=== PATIENT | female | born 1955 | race Two or more races ===

== ENCOUNTER 2024-09-17 09:38 | Outpatient (AMB) | payer OTHER, SELFPAY ==
--- NOTE | 2024-08-21 15:27 | PD.ORTHCLVIS ---
Med/Allergies Allergies & Medications Allergies Penicillins Allergy (Intermediate, Verified 08/20/24 09:12) Rash Subjective Immunization / Flu Flu Vaccine in the Last 12 Months: Yes Flu Vaccine Exclusion Criteria: Already Received Review of Systems Review of Systems: All systems negative unless otherwise noted in HPI. Assessment and Plan Problem List (1) Mechanical loosening of internal right knee prosthetic joint: Status: Acute Plan Please see attached letter Assessment Assessment: letter attached Plan Plan: letter attached Advanced Care Planning Discussion Advance care planning discussed with:: other Past Medical History Past Medical History Have you ever been diagnosed with any of the following: Neurological Problems Seizures: No Cardiology Problems Hypercholesterolemia: Yes Congestive Heart Failure: No Respiratory Problems Chronic Obstructive Pulmonary Disease (COPD): No Bronchitis: Yes Sleep Apnea: Yes (does not have CPAP) Smoking: No Smoking Exposure: No Stomache/Intestinal Problems Hepatitis: No Gastroesophageal Reflux Disease: Yes Genital/Urinary Problems Renal Disease: No Reproductive Problems Previous Pregnancies: Yes Musculoskeletal Problems Arthritis: Yes Head,Eye,Nose,Throat Problems Cataracts: Yes (bilateral) Endocrine Problems Diabetes Mellitus Type 1: No Diabetes Mellitus Type 2: No Blood Problems Anemia: Yes Other Problems Hospitalization: No Shingles: No Falls: No Blood Transfusions: No Blood Transfusion Reaction: No Anesthesia Reactions: Yes (Right knee) Organ Transplant: No Chicken Pox: Yes Measles: Yes Cancer: No
[2024-09-17 10:09] VITALS: BP 168/77; PULSE 93; RESP 19; TEMP 36.4; O2SAT 98; BMI 28.9; BMI 63.1
--- NOTE | 2024-09-17 10:09 | PD.ORTHCLVIS ---
Vital signs 09/17/24 10:09 09/17/24 10:09 Height 1.5 m 1.5 m Height Method Stated Stated Weight 142 kg 65.062 kg Weight Measurement Method Standing Scale Standing Scale BMI 63.1 28.9 BP 168/77 H Blood Pressure Source Automatic Cuff Blood Pressure Location Right Upper Arm Position Sitting Respiration 19 Pulse 93 Pulse Source Monitor Temp 97.5 F Temp Source Temporal Artery Scan Pulse Oximetry (%) 98 Oxygen Delivery Method Room Air Med/Allergies Allergies & Medications Allergies Penicillins Allergy (Intermediate, Verified 09/17/24 10:10) Rash Medication Reconciliation atorvastatin 40 mg tablet 20 mg PO DAILY 11/07/18 [History Confirmed 09/17/24] omeprazole 40 mg capsule,delayed release 40 mg PO QDAY 11/07/18 [History Confirmed 09/17/24] meclizine 25 mg tablet 25 mg PO BID 05/09/23 [History Confirmed 09/17/24] ascorbic acid (vitamin C) 250 mg tablet (Vitamin C) 250 mg PO BID 08/05/24 [History Confirmed 09/17/24] calcium carbonate 600 mg-vitamin D3 5 mcg (200 unit) tablet 1 tab PO QDAY 08/05/24 [History Confirmed 09/17/24] ginkgo biloba leaf extract 120 mg capsule 120 mg PO QDAY 08/05/24 [History Confirmed 09/17/24] aspirin 81 mg tablet,delayed release 81 mg PO BID #60 tabs 08/07/24 [Rx Confirmed 09/17/24] doxycycline hyclate 100 mg tablet 100 mg PO BID #14 tabs 08/07/24 [Rx Confirmed 09/17/24] gabapentin 300 mg capsule 300 mg PO .qhs #30 caps 08/07/24 [Rx Confirmed 09/17/24] oxycodone 5 mg tablet 5 mg PO Q6H PRN pain #28 tabs 08/07/24 [Rx Confirmed 09/17/24] sennosides 8.6 mg-docusate sodium 50 mg tablet (Senna-S) 1 tab-cap PO QDAY #30 tabs 08/07/24 [Rx Confirmed 09/17/24] acetaminophen 500 mg tablet (Acetaminophen Extra Strength) 1,000 mg (2 x 500 mg) PO Q6H PRN pain #90 tabs 09/11/24 [Rx Confirmed 09/17/24] Subjective Visit Visit for: follow up visit and post op #1 Immunization / Flu Flu Vaccine in the Last 12 Months: No Flu Vaccine Exclusion Criteria: No Exclusion Criteria History of Present Illness Chief complaint: POST OP Patient is doing well status post total knee replacement. She is 6 weeks out from revision total knee replacement. She is doing well Personal History Occupation: DISABLED Pain Pain level (0-10): 6 Pain duration: COMES AND GOES Pain location: anterior and posterior Pain quality: sharp, dull and aching Pain timing: increases with activity Associated signs & symptoms: numbness and stiffness Ambulatory data Ambulatory device: cane Treatments Improvement with previous injections: No Improvement with PT: No Improvement with NSAIDS: n/a Review of Systems Review of Systems: All systems negative unless otherwise noted in HPI. Exam Exam Patient is in no acute distress and is cooperative with the examination today. Patient has a normal mood and affect. Breathing is nonlabored. In no respiratory distress. Bilateral extremities were evaluated and demonstrates sensation intact to light touch. Palpable pedal pulses are present. No significant edema is present. Right knee incisions clean dry intact. Range of motion is 5 to 95 degrees X-rays demonstrate a revision total knee replacement in good alignment position Assessment and Plan Problem List (1) Mechanical loosening of internal right knee prosthetic joint: Status: Acute Plan: Patient is doing well status post revision total knee replacement for loosening. She should continue to work with outpatient physical therapy. Will see her in approximately 6 weeks and check on her motion. Advanced Care Planning Discussion Advance care planning discussed with:: patient Office Procedures GNS Level of Care Nursing/Assessment Patient Status: Established Patient Nursing Assessment/Reassesment: Medication Reconciliation, Update PMH in EMR and Vital Signs Coordination of Care: Complex Care and Chronic Disease 1-5, Education Complex Pt/Fam, Consent,records obtained, informed consent, Results/Orders obtained and Staff clarify orders Special Needs: Language special needs Established Patient Charge Established Patient Point Assignment: 95 Established Patient Point Charge: EP Level 3 (80-115) Past Medical History Past Medical History Have you ever been diagnosed with any of the following: Neurological Problems Seizures: No Cardiology Problems Hypercholesterolemia: Yes Congestive Heart Failure: No Respiratory Problems Chronic Obstructive Pulmonary Disease (COPD): No Bronchitis: Yes Sleep Apnea: Yes (does not have CPAP) Smoking: No Smoking Exposure: No Stomache/Intestinal Problems Hepatitis: No Gastroesophageal Reflux Disease: Yes Genital/Urinary Problems Renal Disease: No Reproductive Problems Previous Pregnancies: Yes Musculoskeletal Problems Arthritis: Yes Head,Eye,Nose,Throat Problems Cataracts: Yes (bilateral) Endocrine Problems Diabetes Mellitus Type 1: No Diabetes Mellitus Type 2: No Blood Problems Anemia: Yes Other Problems Hospitalization: No Shingles: No Falls: No Blood Transfusions: No Blood Transfusion Reaction: No Anesthesia Reactions: Yes (Right knee) Organ Transplant: No Chicken Pox: Yes Measles: Yes Cancer: No Surgical History Total Knee Replacement: Yes
== END 2024-09-17 10:36 | disposition home or self-care (01) ==
LOC: HODSRG 09:38
PROVIDERS: PCP Internal Medicine; Referring Provider Internal Medicine; Supervising Provider Orthopaedic Surgery Adult Reconstructive Orthopaedic Surgery; Visit Provider Orthopaedic Surgery Adult Reconstructive Orthopaedic Surgery
DX: T84.032D Mechanical loosening of internal right knee prosthetic joint, subsequent encounter (principal); Z96.659 Presence of unspecified artificial knee joint; E78.00 Pure hypercholesterolemia, unspecified; G47.30 Sleep apnea, unspecified
CPT/HCPCS: 99213; G0463

== ENCOUNTER 2024-10-29 10:21 | Outpatient (AMB) | payer OTHER, SELFPAY ==
[2024-10-29 11:13] VITALS: BP 128/79; PULSE 71; RESP 18; TEMP 36.3; O2SAT 94; BMI 28.6
--- NOTE | 2024-10-29 11:13 | PD.ORTHCLVIS ---
Vital signs 10/29/24 11:13 Height 1.5 m Height Method Stated Weight 64.438 kg Weight Measurement Method Standing Scale BMI 28.6 BP 128/79 Blood Pressure Source Automatic Cuff Blood Pressure Location Left Upper Arm Position Sitting Respiration 18 Pulse 71 Pulse Source Monitor Temp 97.3 F Temp Source Temporal Artery Scan Pulse Oximetry (%) 94 L Oxygen Delivery Method Room Air Med/Allergies Allergies & Medications Allergies Penicillins Allergy (Intermediate, Verified 09/17/24 10:10) Rash Subjective Visit Visit for: follow up visit, post op #1 and knee Immunization / Flu Flu Vaccine in the Last 12 Months: No Flu Vaccine Exclusion Criteria: No Exclusion Criteria History of Present Illness Chief complaint: POST OP Patient is doing well status post total knee replacement. She is 12 weeks out from revision total knee replacement. She is doing well Personal History Occupation: DISABLED Pain Pain level (0-10): 4 Pain duration: ON AND OFF Pain location: inside (medial), anterior and posterior Pain quality: sharp, dull and aching Pain timing: increases with activity Associated signs & symptoms: numbness and stiffness Ambulatory data Ambulatory device: cane and none Treatments Improvement with previous injections: No Improvement with PT: No Improvement with NSAIDS: no Review of Systems Review of Systems: All systems negative unless otherwise noted in HPI. Exam Exam Patient is in no acute distress and is cooperative with the examination today. Patient has a normal mood and affect. Breathing is nonlabored. In no respiratory distress. Bilateral extremities were evaluated and demonstrates sensation intact to light touch. Palpable pedal pulses are present. No significant edema is present. Right knee incisions clean dry intact. Range of motion is 5 to 95 degrees X-rays demonstrate a revision total knee replacement in good alignment position Assessment and Plan Problem List (1) Mechanical loosening of internal right knee prosthetic joint: Status: Acute Plan: Patient is doing well status post revision total knee replacement for loosening. She should continue to work with outpatient physical therapy. Will see her in approximately 3 months for routine followup. She is happy with her pain relief. Advanced Care Planning Discussion Advance care planning discussed with:: patient Office Procedures GNS Level of Care Nursing/Assessment Patient Status: Established Patient Nursing Assessment/Reassesment: Medication Reconciliation, Update PMH in EMR and Vital Signs Coordination of Care: Complex Care and Chronic Disease 1-5, Education Complex Pt/Fam, Consent,records obtained, informed consent, Lab and Imaging orders, Results/Orders obtained and Staff clarify orders Special Needs: Language special needs Established Patient Charge Established Patient Point Assignment: 110 Established Patient Point Charge: EP Level 3 (80-115) Past Medical History Past Medical History Have you ever been diagnosed with any of the following: Neurological Problems Seizures: No Cardiology Problems Hypercholesterolemia: Yes Congestive Heart Failure: No Respiratory Problems Chronic Obstructive Pulmonary Disease (COPD): No Bronchitis: Yes Sleep Apnea: Yes (does not have CPAP) Smoking: No Smoking Exposure: No Stomache/Intestinal Problems Hepatitis: No Gastroesophageal Reflux Disease: Yes Genital/Urinary Problems Renal Disease: No Reproductive Problems Previous Pregnancies: Yes Musculoskeletal Problems Arthritis: Yes Head,Eye,Nose,Throat Problems Cataracts: Yes (bilateral) Endocrine Problems Diabetes Mellitus Type 1: No Diabetes Mellitus Type 2: No Blood Problems Anemia: Yes Other Problems Hospitalization: No Shingles: No Falls: No Blood Transfusions: No Blood Transfusion Reaction: No Anesthesia Reactions: Yes (Right knee) Organ Transplant: No Chicken Pox: Yes Measles: Yes Cancer: No Surgical History Total Knee Replacement: Yes
== END 2024-10-29 11:19 | disposition home or self-care (01) ==
LOC: HODSRG 10:21
PROVIDERS: PCP Internal Medicine; Referring Provider Internal Medicine; Supervising Provider Orthopaedic Surgery Adult Reconstructive Orthopaedic Surgery; Visit Provider Orthopaedic Surgery Adult Reconstructive Orthopaedic Surgery
DX: T84.032D Mechanical loosening of internal right knee prosthetic joint, subsequent encounter (principal); Y84.9 Medical procedure, unspecified as the cause of abnormal reaction of the patient, or of later complication, without mention of misadventure at the time of the procedure; E78.00 Pure hypercholesterolemia, unspecified; K21.9 Gastro-esophageal reflux disease without esophagitis
CPT/HCPCS: 99213; G0463

== ENCOUNTER → 2024-12-30 | Outpatient (CLI) | payer OTHER, SELFPAY ==
--- NOTE | 2024-12-30 10:01 | XR_ITS ---
Examination: Right knee 4 views TECHNIQUE: AP oblique lateral axial right knee 4 views Exam date and time: December 30, 2024 1023 hours Comparison September 11, 2024 INDICATIONS: Postop knee surgery August 2024 with persistent knee pain FINDINGS: Moderate osteopenia Total right knee arthroplasty. Satisfactory alignment. No loosening of the prosthetic components No patellar dislocation IMPRESSION: Total right knee arthroplasty with satisfactory alignment
== END | disposition home or self-care (01) ==
PROVIDERS: PCP Internal Medicine; Referring Provider Orthopaedic Surgery Adult Reconstructive Orthopaedic Surgery; Visit Provider Orthopaedic Surgery Adult Reconstructive Orthopaedic Surgery
DX: T84.032A Mechanical loosening of internal right knee prosthetic joint, initial encounter (principal)
CPT/HCPCS: 73564

== ENCOUNTER 2025-01-28 09:54 | Outpatient (AMB) | payer OTHER, SELFPAY ==
[2025-01-28 10:36] VITALS: BP 134/73; PULSE 71; RESP 18; TEMP 36.4; O2SAT 98; BMI 27.9
--- NOTE | 2025-01-28 10:36 | PD.ORTHCLVIS ---
Vital signs 01/28/25 10:36 Height 1.5 m Height Method Stated Weight 62.823 kg Weight Measurement Method Standing Scale BMI 27.9 BP 134/73 H Blood Pressure Source Automatic Cuff Blood Pressure Location Left Upper Arm Position Sitting Respiration 18 Pulse 71 Pulse Source Monitor Temp 97.5 F Temp Source Temporal Artery Scan Pulse Oximetry (%) 98 Oxygen Delivery Method Room Air Med/Allergies Allergies & Medications Allergies Penicillins Allergy (Intermediate, Verified 01/28/25 10:37) Rash Medication Reconciliation atorvastatin 40 mg tablet 20 mg PO DAILY 11/07/18 [History Confirmed 01/28/25] omeprazole 40 mg capsule,delayed release 40 mg PO QDAY 11/07/18 [History Confirmed 01/28/25] meclizine 25 mg tablet 25 mg PO BID 05/09/23 [History Confirmed 01/28/25] ascorbic acid (vitamin C) 250 mg tablet (Vitamin C) 250 mg PO BID 08/05/24 [History Confirmed 01/28/25] calcium 600 mg (as carbonate)-vitamin D3 5 mcg (200 unit) tablet 1 tab PO QDAY 08/05/24 [History Confirmed 01/28/25] ginkgo biloba leaf extract 120 mg capsule 120 mg PO QDAY 08/05/24 [History Confirmed 01/28/25] aspirin 81 mg tablet,delayed release 81 mg PO BID #60 tabs 08/07/24 [Rx Confirmed 01/28/25] doxycycline hyclate 100 mg tablet 100 mg PO BID #14 tabs 08/07/24 [Rx Confirmed 01/28/25] gabapentin 300 mg capsule 300 mg PO .qhs #30 caps 08/07/24 [Rx Confirmed 01/28/25] oxycodone 5 mg tablet 5 mg PO Q6H PRN pain #28 tabs 08/07/24 [Rx Confirmed 01/28/25] sennosides 8.6 mg-docusate sodium 50 mg tablet (Senna-S) 1 tab-cap PO QDAY #30 tabs 08/07/24 [Rx Confirmed 01/28/25] acetaminophen 500 mg tablet (Acetaminophen Extra Strength) 1,000 mg (2 x 500 mg) PO Q6H PRN pain #90 tabs 09/11/24 [Rx Confirmed 01/28/25] Exam Exam Patient is in no acute distress and is cooperative with the examination today. Patient has a normal mood and affect. Breathing is nonlabored. In no respiratory distress. Bilateral extremities were evaluated and demonstrates sensation intact to light touch. Palpable pedal pulses are present. No significant edema is present. Right knee incisions clean dry intact. Range of motion is 5 to 95 degrees X-rays demonstrate a revision total knee replacement in good alignment position Assessment and Plan Problem List (1) Mechanical loosening of internal right knee prosthetic joint: Status: Acute Plan: Patient is doing well status post revision total knee replacement for loosening.She is ambulating well. She reports that she continues to improve. Will see her in approximately 6 months with new x-rays Advanced Care Planning Discussion Advance care planning discussed with:: patient Office Procedures GNS Level of Care Nursing/Assessment Patient Status: Established Patient Nursing Assessment/Reassesment: Medication Reconciliation, Update PMH in EMR and Vital Signs Coordination of Care: Complex Care and Chronic Disease 1-5, Education Complex Pt/Fam, Consent,records obtained, informed consent, Results/Orders obtained and Staff clarify orders Special Needs: Language special needs Established Patient Charge Established Patient Point Assignment: 95 Established Patient Point Charge: EP Level 3 (80-115) MA Intake Visit Data Collection New Patient or Established: Established Patient (seen at [facility] within 3 years) Reason for Visit:: 3 MONTH F/U Seen by Clinical Staff ONLY (RN/MA): No Tube Worker Required: Yes PCP or OBGYN visit in last 3 months: Yes Hx Now: No Do You Feel Safe at Home: Yes Authorities Contacted: N/A Questionairres Past Medical History Past Medical History Have you ever been diagnosed with any of the following: Neurological Problems Seizures: No Cardiology Problems Hypercholesterolemia: Yes Congestive Heart Failure: No Respiratory Problems Chronic Obstructive Pulmonary Disease (COPD): No Bronchitis: Yes Sleep Apnea: Yes (does not have CPAP) Smoking: No Smoking Cessation Counseling: No Smoking Exposure: No Stomache/Intestinal Problems Hepatitis: No Gastroesophageal Reflux Disease: Yes Genital/Urinary Problems Renal Disease: No Reproductive Problems Previous Pregnancies: Yes Musculoskeletal Problems Arthritis: Yes Head,Eye,Nose,Throat Problems Cataracts: Yes (bilateral) Endocrine Problems Diabetes Mellitus Type 1: No Diabetes Mellitus Type 2: No Blood Problems Anemia: Yes Other Problems Hospitalization: No Shingles: No Falls: No Blood Transfusions: No Blood Transfusion Reaction: No Anesthesia Reactions: Yes (Right knee) Organ Transplant: No Chicken Pox: Yes Measles: Yes Cancer: No Surgical History Total Knee Replacement: Yes Subjective Visit Visit for: follow up visit and knee Immunization / Flu Flu Vaccine in the Last 12 Months: No Flu Vaccine Exclusion Criteria: No Exclusion Criteria History of Present Illness Chief complaint: Right revision knee replacement Arminda is almost 6 months out from a 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 She reports that the pain is better than before surgery. Her range of motion is 0 to 95 degrees. She reports that it continues to improve but is not perfect. Pain Pain level (0-10): 7 Pain duration: CONSTANT Pain location: anterior Pain quality: sharp and other (specify) (HOT TO TOUCH) Associated signs & symptoms: numbness Ambulatory data Ambulatory device: none Treatments Improvement with previous injections: No Improvement with PT: No Improvement with NSAIDS: no Review of Systems Review of Systems: All systems negative unless otherwise noted in HPI.
== END 2025-01-28 10:51 | disposition home or self-care (01) ==
LOC: HODSRG 09:54
PROVIDERS: PCP Internal Medicine; Referring Provider Internal Medicine; Supervising Provider Orthopaedic Surgery Adult Reconstructive Orthopaedic Surgery; Visit Provider Orthopaedic Surgery Adult Reconstructive Orthopaedic Surgery
DX: Z47.1 Aftercare following joint replacement surgery (principal); Z96.651 Presence of right artificial knee joint
CPT/HCPCS: 99213; G0463

== ENCOUNTER → 2025-02-06 | Outpatient (CLI) | payer OTHER, SELFPAY ==
--- NOTE | 2025-02-06 11:30 | XR_ITS ---
Examination: Screening digital mammography, bilateral Computer aided detection 3-D breast Tomosynthesis, bilateral Date and time of exam: 02/06/2025, 11:13 AM Comparisons: 12/20/2023 Indications: Screening Technique: Nonmagnified MLO, CC views of the breasts to been obtained, reconstructed from 3-D Tomosynthesis images. R2 computer aided detection program utilized for evaluation of suspicious masses and/or abnormal calcifications. 3-D Tomosynthesis images obtained. Technologist: Findings: There are scattered areas of fibroglandular density. No evidence of abnormal masses or suspicious calcifications. Impression: BI-RADS category 1: Negative findings (within normal) Recommend 1 year follow-up mammogram
== END | disposition home or self-care (01) ==
LOC: CDIM 11:07
PROVIDERS: Referring Provider Internal Medicine; Visit Provider Internal Medicine
DX: Z12.31 Encounter for screening mammogram for malignant neoplasm of breast (principal); R92.313 Mammographic fatty tissue density, bilateral breasts
CPT/HCPCS: 77063; 77067

== ENCOUNTER → 2025-04-01 | Outpatient (CLI) | payer OTHER, SELFPAY ==
[2025-04-01 08:47] LABS: Glucose Estimated Average 134 mg/dL (80-131); Hemoglobin A1C 6.3 % Hgb (4.8-6.0)
[2025-04-01 09:03] LABS: Vitamin D 25 Hydroxy Total 33.1 ng/mL (7.3-40.2)
[2025-04-01 09:21] LABS: Basophils % (Auto) 1 % (0-2.5); Eosinophils # (Auto) 0.1 Thou/mm3 (0.0-0.5); Eosinophils % (Auto) 1 % (0-10); Immature Granulocytes % (Auto) 0 % (0-0); Immature Granulocytes Auto 0.01 Thou/mm3 (0.00-0.00); Lymphocytes # (Auto) 2.4 Thou/mm3 (1.0-4.8); Lymphocytes % (Auto) 32 % (10-50); Mean Corpuscular HGB Conc 31.6 g/dl (31.0-37.0); Mean Corpuscular Hemoglobin 25.2 pg (25.0-35.0); Mean Corpuscular Volume 80 fL (80-100); Monocytes # (Auto) 0.6 Thou/mm3 (0.0-0.8); Monocytes % (Auto) 8 % (0-12); Neutrophils # (Auto) 4.2 Thou/mm3 (1.8-7.7); Neutrophils % (Auto) 58 % (37-80); Nucleated Red Blood Cell % 0 /100 WBC (0); Platelet Count 343 Thou/mm3 (140-440); RDW Standard Deviation 40.2 fL (36.4-46.3); Red Blood Count 4.77 Miln/mm3 (4.00-5.20); White Blood Count 7.3 Thou/mm3 (3.6-11.0)
[2025-04-01 09:51] LABS: Alanine Aminotransferase 14 U/L (10-49); Albumin, Serum 4.3 gm/dL (3.4-4.8); Albumin/Globulin Ratio 1.7 (1.2-2.2); Alkaline Phosphatase 118 U/L (46-116); Anion Gap 9 (7-16); Aspartate Amino Transferase 22 U/L (0-34); BUN/Creatinine Ratio 11 Ratio (12-20); Bilirubin,Total 0.5 mg/dL (0.3-1.2); Blood Urea Nitrogen 8 mg/dL (9-23); Calcium 8.8 mg/dL (8.3-10.6); Calcium (Corrected) 8.8 mg/dL (8.5-10.1); Carbon Dioxide 29.5 mMol/L (20.0-31.0); Cardiac Risk Estimate 3.2 RATIO (3.7-5.6); Chloride 106 mMol/L (98-107); Cholesterol 186 mg/dL (132-200); Creatinine (Component) 0.7 mg/dL (0.6-1.3); Free T4 (Free Thyroxine) 1.15 ng/dL (0.89-1.76); Globulin 2.6 gm/dL (2.3-3.5); Glucose 112 mg/dL (74-106); HDL Cholesterol 59 mg/dL (40-60); LDL Cholesterol,Calculated 100 mg/dL (0-130); Osmolality,Calculated 286 (275-295); Potassium 4.3 mMol/L (3.4-5.1); Sodium 144 mMol/L (136-145); Total Protein 6.9 gm/dL (5.7-8.2); Triglycerides 135 mg/dL (30-150); eGFR > 60 See Note
== END | disposition home or self-care (01) ==
LOC: COPL 07:42
PROVIDERS: PCP Internal Medicine; Referring Provider Internal Medicine; Visit Provider Internal Medicine
DX: Z00.00 Encounter for general adult medical examination without abnormal findings (principal); E55.9 Vitamin D deficiency, unspecified
CPT/HCPCS: 36415; 80053; 80061; 82306; 83036; 84439; 84443; 85025

== ENCOUNTER → 2025-05-09 | Outpatient (CLI) | payer OTHER, SELFPAY ==
--- NOTE | 2025-05-09 13:45 | XR_ITS ---
Examination: Carotid arterial duplex scan, ultrasound. Date and time of exam: May 09, 2025 1344 hours INDICATIONS: History transient ischemic attacks and headaches beginning one year ago Technique: Multiple sonographic images have been obtained of the carotid arteries and vertebral arteries, B-mode/grayscale imaging and Doppler spectral analysis and color flow Peak systolic and diastolic velocities have been recorded. Systolic diastolic ratios have been calculated. Findings: Right peak systolic velocities: Distal internal carotid artery peak systolic velocity is 1.0 M/sec Proximal internal carotid artery peak systolic velocity is 0.8 M/sec Carotid bifurcation peak systolic velocity is 0.8 M/sec External carotid artery peak systolic velocity is 1.7 M/sec Vertebral artery flow is antegrade. Left peak systolic velocities: Distal internal carotid artery peak systolic velocity is 1.2 M/sec Proximal internal carotid artery peak systolic velocity is 0.8 M/sec Carotid bifurcation peak systolic velocity is 0.9 M/sec External carotid artery peak systolic velocity is 0.8 M/sec Vertebral artery flow is antegrade Doppler waveform analysis demonstrates no spectral broadening Impression: Right internal carotid artery demonstrates 0-10% stenosis. Left internal carotid artery demonstrates 0-10% stenosis.
--- NOTE | 2025-05-09 14:15 | XR_ITS ---
Examination: Bone densitometry Date and time of exam:May 09, 2025 1421 hours INDICATIONS: Menopause age 52 calcium 3 months personal history osteoporosis Technique: Lumbar spine and hip total bone mineralization values of an calculated. Peak reference and age match control results have been displayed. Findings: Lumbar spine total bone mineralization is0.735 gm/cm2. This is 2.8 standard deviations below peak reference. This is 0.7 standard deviations below age-matched controls. Hip total bone mineralization is 0.741 gm/cm2 This is 1.7 standard deviations below peak reference. This is 0.1 standard deviations below age-matched controls Impression: There is osteoporosis based on lumbar spine measurements. There is osteoporosis based on hip measurements Lumbar mineralization is increased 2.1% compared with December 02, 2021 Hip mineralization is decreased 2.6% compared with December 02, 2021
== END | disposition home or self-care (01) ==
LOC: CDIM 13:29
PROVIDERS: PCP Internal Medicine; Referring Provider Internal Medicine; Visit Provider Internal Medicine
DX: M81.0 Age-related osteoporosis without current pathological fracture (principal); Z86.73 Personal history of transient ischemic attack (TIA), and cerebral infarction without residual deficits
CPT/HCPCS: 77080; 93880

== ENCOUNTER 2025-07-01 09:13 | Outpatient (AMB) | payer OTHER, SELFPAY ==
--- NOTE | 2025-07-01 09:29 | PD.ORTHCLVIS ---
Vital signs 07/01/25 09:30 Height 1.5 m Height Method Measured Weight 63.588 kg Weight Measurement Method Standing Scale BMI 28.2 BP 127/71 Blood Pressure Source Automatic Cuff Blood Pressure Location Left Upper Arm Position Sitting Respiration 18 Pulse 65 Pulse Source Monitor Temp 97.8 F Temp Source Temporal Artery Scan Pulse Oximetry (%) 98 Oxygen Delivery Method Room Air Med/Allergies Allergies & Medications Allergies Penicillins Allergy (Intermediate, Verified 07/01/25 09:31) Rash Medication Reconciliation atorvastatin 40 mg tablet 20 mg PO DAILY 11/07/18 [History Confirmed 07/01/25] omeprazole 40 mg capsule,delayed release 40 mg PO QDAY 11/07/18 [History Confirmed 07/01/25] meclizine 25 mg tablet 25 mg PO BID 05/09/23 [History Confirmed 07/01/25] ascorbic acid (vitamin C) 250 mg tablet (Vitamin C) 250 mg PO BID 08/05/24 [History Confirmed 07/01/25] calcium 600 mg (as carbonate)-vitamin D3 5 mcg (200 unit) tablet 1 tab PO QDAY 08/05/24 [History Confirmed 07/01/25] ginkgo biloba leaf extract 120 mg capsule 120 mg PO QDAY 08/05/24 [History Confirmed 07/01/25] aspirin 81 mg tablet,delayed release 81 mg PO BID #60 tabs 08/07/24 [Rx Confirmed 07/01/25] doxycycline hyclate 100 mg tablet 100 mg PO BID #14 tabs 08/07/24 [Rx Confirmed 07/01/25] gabapentin 300 mg capsule 300 mg PO .qhs #30 caps 08/07/24 [Rx Confirmed 07/01/25] oxycodone 5 mg tablet 5 mg PO Q6H PRN pain #28 tabs 08/07/24 [Rx Confirmed 07/01/25] sennosides 8.6 mg-docusate sodium 50 mg tablet (Senna-S) 1 tab-cap PO QDAY #30 tabs 08/07/24 [Rx Confirmed 07/01/25] acetaminophen 500 mg tablet (Acetaminophen Extra Strength) 1,000 mg (2 x 500 mg) PO Q6H PRN pain #90 tabs 09/11/24 [Rx Confirmed 07/01/25] Exam Exam Patient is in no acute distress and is cooperative with the examination today. Patient has a normal mood and affect. Breathing is nonlabored. In no respiratory distress. Bilateral extremities were evaluated and demonstrates sensation intact to light touch. Palpable pedal pulses are present. No significant edema is present. Right knee incisions clean dry intact. Range of motion is 5 to 95 degrees X-rays demonstrate a revision total knee replacement in good alignment position Assessment and Plan Problem List (1) Mechanical loosening of internal right knee prosthetic joint: Status: Acute Plan: Patient is doing well status post revision total knee replacement for loosening.She is ambulating well. She reports that she continues to improve. She still has knee pain and she needs new x-rays. We will order x-rays today Advanced Care Planning Discussion Advance care planning discussed with:: patient Office Procedures GNS Level of Care Nursing/Assessment Patient Status: Established Patient Nursing Assessment/Reassesment: Medication Reconciliation, Update PMH in EMR and Vital Signs Coordination of Care: Complex Care and Chronic Disease 1-5, Education Complex Pt/Fam, Consent,records obtained, informed consent, Lab and Imaging orders, Results/Orders obtained and Staff clarify orders Special Needs: Language special needs Established Patient Charge Established Patient Point Assignment: 110 Established Patient Point Charge: EP Level 3 (80-115) MA Intake Visit Data Collection New Patient or Established: Established Patient (seen at [facility] within 3 years) Reason for Visit:: RIGHT KNEE TKA F/U Seen by Clinical Staff ONLY (RN/MA): No Intelligence Chief Required: Yes PCP or OBGYN visit in last 3 months: Yes Hx Now: No Do You Feel Safe at Home: Yes Authorities Contacted: N/A Questionairres Past Medical History Past Medical History Have you ever been diagnosed with any of the following: Neurological Problems Seizures: No Cardiology Problems Hypercholesterolemia: Yes Congestive Heart Failure: No Respiratory Problems Chronic Obstructive Pulmonary Disease (COPD): No Bronchitis: Yes Sleep Apnea: Yes (does not have CPAP) Smoking: No Smoking Cessation Counseling: No Smoking Exposure: No Stomache/Intestinal Problems Hepatitis: No Gastroesophageal Reflux Disease: Yes Genital/Urinary Problems Renal Disease: No Reproductive Problems Previous Pregnancies: Yes Musculoskeletal Problems Arthritis: Yes Head,Eye,Nose,Throat Problems Cataracts: Yes (bilateral) Endocrine Problems Diabetes Mellitus Type 1: No Diabetes Mellitus Type 2: No Blood Problems Anemia: Yes Other Problems Hospitalization: No Shingles: No Falls: No Blood Transfusions: No Blood Transfusion Reaction: No Anesthesia Reactions: Yes (Right knee) Organ Transplant: No Chicken Pox: Yes Measles: Yes Cancer: No Surgical History Total Knee Replacement: Yes Subjective Visit Visit for: follow up visit and knee Immunization / Flu Flu Vaccine in the Last 12 Months: No Flu Vaccine Exclusion Criteria: No Exclusion Criteria History of Present Illness Chief complaint: RIGHT KNEE TKA F/U Arminda is almost 9 months out from a 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 She reports that the pain is better than before surgery. Her range of motion is 0 to 95 degrees. She reports that it continues to improve but is not perfect. She reports she has some numbness and tingling on the inferior lateral aspect of her knee Personal History Red flag PMH: none BMI Counceling provided: No Pain Pain level (0-10): 6 Pain duration: CONSTANT Pain location: outside (lateral) and anterior Pain quality: sharp and other (specify) (HOT TO TOUCH) Associated signs & symptoms: numbness Ambulatory data Ambulatory device: none Treatments Improvement with previous injections: No Improvement with PT: No Improvement with NSAIDS: no Review of Systems Review of Systems: All systems negative unless otherwise noted in HPI.
[2025-07-01 09:30] VITALS: BP 127/71; PULSE 65; RESP 18; TEMP 36.6; O2SAT 98; BMI 28.2
--- NOTE | 2025-07-01 09:43 | XR_ITS ---
Examination: Bilateral AP knees standing single view Right knee PA lateral axial 3 views TECHNIQUE: Bilateral AP knees standing single view Right knee standing PA flexion, standing lateral, axial right knee 3 views total 4 views Date and time: July 01, 2025, 1013 hours INDICATIONS: Right knee pain post knee replacement August 2025. FINDINGS: Moderate osteopenia. Total right knee arthroplasty. Satisfactory alignment. No loosening of the prosthetic components Moderate to advanced narrowing medial joint space left knee IMPRESSION: Total right knee arthroplasty with satisfactory alignment
== END 2025-07-01 09:45 | disposition home or self-care (01) ==
LOC: HODSRG 09:13
PROVIDERS: PCP Internal Medicine; Referring Provider Internal Medicine; Supervising Provider Orthopaedic Surgery Adult Reconstructive Orthopaedic Surgery; Visit Provider Orthopaedic Surgery Adult Reconstructive Orthopaedic Surgery
DX: T84.032D Mechanical loosening of internal right knee prosthetic joint, subsequent encounter (principal); Y84.9 Medical procedure, unspecified as the cause of abnormal reaction of the patient, or of later complication, without mention of misadventure at the time of the procedure; M25.569 Pain in unspecified knee
CPT/HCPCS: 73564; 99213; G0463

== ENCOUNTER 2025-07-18 10:25 | Outpatient (AMB) | payer OTHER, SELFPAY ==
--- NOTE | 2025-07-18 10:52 | ORTHONT_ITS ---
Vital signs 07/18/25 10:53 Height 1.5 m Height Method Measured Weight 62.823 kg Weight Measurement Method Standing Scale BMI 27.9 BP 141/77 H Blood Pressure Source Automatic Cuff Blood Pressure Location Left Upper Arm Position Sitting Respiration 18 Pulse 78 Pulse Source Monitor Temp 97.7 F Temp Source Temporal Artery Scan Pulse Oximetry (%) 96 Oxygen Delivery Method Room Air Med/Allergies Allergies & Medications Allergies Penicillins Allergy (Intermediate, Verified 07/01/25 09:31) Rash Exam Exam Patient is in no acute distress and is cooperative with the examination today. Patient has a normal mood and affect. Breathing is nonlabored. In no respiratory distress. Bilateral extremities were evaluated and demonstrates sensation intact to light touch. Palpable pedal pulses are present. No significant edema is present. Right knee incisions clean dry intact. Range of motion is 5 to 95 degrees X-rays demonstrate a revision total knee replacement in good alignment position. There is no shift in position of the components. The left knee demonstrates significant arthritis Assessment and Plan Problem List (1) Mechanical loosening of internal right knee prosthetic joint: Status: Acute Plan: Patient is doing well status post revision total knee replacement for loosening.She is ambulating well. She reports that she continues to improve. She would like a left knee cortisone injection. Recommend knee cortisone injection as patient would like to proceed with conservative treatment at this time. The risks and benefits of the procedure were reviewed with the patient and patient gave verbal consent to continue with the procedure. Procedure: performed by Dr. Clifford Using sterile technique the left knee was thoroughly prepped with alcohol, and approximately 1 cc of Depo-Medrol 80mg/mL and 4 cc of 0.2% ropivacaine was injected without resistance into the medial tibial femoral joint space. The patient tolerated the procedure. Advanced Care Planning Discussion Advance care planning discussed with:: patient Office Procedures GNS Level of Care Nursing/Assessment Patient Status: Established Patient Nursing Assessment/Reassesment: Medication Reconciliation, Orthostatic Vitals, Update PMH in EMR and Vital Signs Coordination of Care: Complex Care and Chronic Disease 1-5, Education Complex Pt/Fam, Consent,records obtained, informed consent, Results/Orders obtained and Staff clarify orders Established Patient Charge Established Patient Point Assignment: 105 Established Patient Point Charge: EP Level 3 (80-115) Surgical Proc/IM SQ injection Major Surgical Procedure: Yes (KNEE INJECTION) Medication Given Medication Given Medication Given: Yes Documented Dose Given: 1 Route: Infiitration Medication Given Medication Given Medication Given: Yes Documented Dose Given: 4 Route: Infiitration Office Meds methylprednisolone acetate 80 mg/mL suspension for injection Performing Provider: Issa Clifford MD Performing Location: [facility] Administered by: Issa Clifford MD on 07/18/25 11:04 Dose Route Admin Location Dispensed Lot Number Expiration Date [facility] Student Services Director 80 mg intra-articular 1 mL [id number] 04/25/27 [address]-9 [facility] [place] ropivacaine (PF) 2 mg/mL (0.2 %) injection solution Performing Provider: Issa Clifford MD Performing Location: [facility] Administered by: Issa Clifford MD on 07/18/25 11:04 Dose Route Admin Location Dispensed Lot Number Expiration Date [facility] Student Services Director 20 mL Infiltration 20 mL [id number] 12/26/27 01396-319-82 [facility] Intake Visit Data Collection New Patient or Established: Established Patient (seen at [facility] within 3 years) Reason for Visit:: XRAY F/U RIGHT KNEE PAIN Seen by Clinical Staff ONLY (RN/MA): No [employer] Frame Assembler Required: Yes PCP or OBGYN visit in last 3 months: Yes Hx Now: No Do You Feel Safe at Home: Yes Authorities Contacted: N/A Questionairres Past Medical History Past Medical History Have you ever been diagnosed with any of the following: Neurological Problems Seizures: No Cardiology Problems Hypercholesterolemia: Yes Congestive Heart Failure: No Respiratory Problems Chronic Obstructive Pulmonary Disease (COPD): No Bronchitis: Yes Sleep Apnea: Yes (does not have CPAP) Smoking: No Smoking Cessation Counseling: No Smoking Exposure: No Stomache/Intestinal Problems Hepatitis: No Gastroesophageal Reflux Disease: Yes Genital/Urinary Problems Renal Disease: No Reproductive Problems Previous Pregnancies: Yes Musculoskeletal Problems Arthritis: Yes Head,Eye,Nose,Throat Problems Cataracts: Yes (bilateral) Endocrine Problems Diabetes Mellitus Type 1: No Diabetes Mellitus Type 2: No Blood Problems Anemia: Yes Other Problems Hospitalization: No Shingles: No Falls: No Blood Transfusions: No Blood Transfusion Reaction: No Anesthesia Reactions: Yes (Right knee) Organ Transplant: No Chicken Pox: Yes Measles: Yes Cancer: No Surgical History Total Knee Replacement: Yes Subjective Visit Visit for: follow up visit and knee Immunization / Flu Flu Vaccine in the Last 12 Months: No Flu Vaccine Exclusion Criteria: No Exclusion Criteria History of Present Illness Chief complaint: RIGHT KNEE TKA F/U Arminda is almost 9 months out from a 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 She reports that the pain is better than before surgery. Her range of motion is 0 to 95 degrees. She reports that it continues to improve but is not perfect. She reports she has some numbness and tingling on the inferior lateral aspect of her knee Personal History Red flag PMH: none BMI Counceling provided: No Pain Pain level (0-10): 6 Pain duration: CONSTANT Pain location: outside (lateral) and anterior Pain quality: sharp and other (specify) (HOT TO TOUCH) Associated signs & symptoms: numbness Ambulatory data Ambulatory device: none Treatments Improvement with previous injections: No Improvement with PT: No Improvement with NSAIDS: no Review of Systems Review of Systems: All systems negative unless otherwise noted in HPI.
[2025-07-18 10:53] VITALS: BP 141/77; PULSE 78; RESP 18; TEMP 36.5; O2SAT 96; BMI 27.9
== END 2025-07-18 10:56 | disposition home or self-care (01) ==
LOC: HODSRG 10:25
PROVIDERS: PCP Internal Medicine; Referring Provider Internal Medicine; Supervising Provider Orthopaedic Surgery Adult Reconstructive Orthopaedic Surgery; Visit Provider Orthopaedic Surgery Adult Reconstructive Orthopaedic Surgery
DX: M17.12 Unilateral primary osteoarthritis, left knee (principal); T84.032D Mechanical loosening of internal right knee prosthetic joint, subsequent encounter; R20.0 Anesthesia of skin; R20.2 Paresthesia of skin; E78.00 Pure hypercholesterolemia, unspecified; G47.30 Sleep apnea, unspecified; K21.9 Gastro-esophageal reflux disease without esophagitis
CPT/HCPCS: 20610; 99213; J1010; J2795; G0463